=== PATIENT | male | born 1980 | race Caucasian/White ===

== ENCOUNTER → 2021-06-23 | Outpatient (CLI) | payer BC | END | disposition home or self-care (01) | LOC: NPLAB 15:54 | PROVIDERS: ATTEND Urology | DX: Z01.818 Encounter for other preprocedural examination (principal); Z98.52 Vasectomy status | CPT/HCPCS: 89310 ==

== ENCOUNTER → 2021-11-13 | Outpatient (CLI) | payer BC | END | disposition home or self-care (01) | LOC: NPLAB 15:21 | PROVIDERS: ATTEND Student in an Organized Health Care Education/Training Program | DX: M70.21 Olecranon bursitis, right elbow (principal) | CPT/HCPCS: 87070 ==

== ENCOUNTER → 2023-05-25 | Outpatient (CLI) | payer BC | END | disposition home or self-care (01) | LOC: RAD 11:56 | PROVIDERS: ATTEND Nurse Practitioner Family | DX: M25.471 Effusion, right ankle (principal); M25.571 Pain in right ankle and joints of right foot; M79.89 Other specified soft tissue disorders | CPT/HCPCS: 73610-RT ==

== ENCOUNTER → 2023-07-20 | Outpatient (CLI) | payer BC, OTHER | END | disposition home or self-care (01) | LOC: RAD 16:42 | PROVIDERS: ATTEND Student in an Organized Health Care Education/Training Program | DX: M19.071 Primary osteoarthritis, right ankle and foot (principal); M25.471 Effusion, right ankle | CPT/HCPCS: 73610-RT ==

== ENCOUNTER → 2023-08-09 | Outpatient (CLI) | payer OTHER | END | disposition home or self-care (01) | LOC: RAD 07:37 | PROVIDERS: ATTEND Student in an Organized Health Care Education/Training Program | DX: S93.432A Sprain of tibiofibular ligament of left ankle, initial encounter (principal); S91.012A Laceration without foreign body, left ankle, initial encounter; M25.571 Pain in right ankle and joints of right foot; M65.872 Other synovitis and tenosynovitis, left ankle and foot; R60.0 Localized edema; X58.XXXA Exposure to other specified factors, initial encounter; Y93.89 Activity, other specified; Y92.89 Other specified places as the place of occurrence of the external cause; Y99.8 Other external cause status | CPT/HCPCS: 73721 ==